=== PATIENT | female | born 1945 | race African-American/Black ===

== ENCOUNTER 2016-11-12 14:15 | Inpatient (IN) | payer BC ==
--- NOTE | ~2016-11-12 | EGD ---
EGD REPORT [facility] [address] [place] [address] NAME: ANGELICA BERGERON : [birth year] STATUS : ADM IN PAT#: [id number] AGE: 71 ADM/REG DATE : 11/12/16 MR#: [id number] REPORT SERV DATE: 11/14/16 DICTATED BY: RUDY MARSHALL DATE: 11/14/16 REPORT STATUS : Draft TRANSCRIBED BY: [facility] DATE: 11/14/16 Endoscopy Center Patient Name: Angelica Bergeron Date of : 1945 Attending MD: RUDY MARSHALL MD Procedure Date No Time: 11/14/2016 Procedure: Colonoscopy Indications: Anemia Referring MD: KHADIJAH NOVOA Medicines: Monitored Anesthesia Care Complications: No immediate complications. Estimated blood loss: Minimal. Procedure: Pre-Anesthesia Assessment: - ASA Grade Assessment: IV - A patient with severe systemic disease that is a constant threat to life. After I obtained informed consent, the scope was passed under direct vision. Throughout the procedure, the patient's blood pressure, pulse, and oxygen saturations were monitored continuously. The CF [id number] was introduced through the anus and advanced to the cecum, identified by appendiceal orifice and ileocecal valve. The colonoscopy was performed without difficulty. The patient tolerated the procedure well. The quality of the bowel preparation was fair. Findings: The perianal and digital rectal examinations were normal. Pertinent negatives include no palpable rectal lesions. A semi-sessile polyp was found in the ascending colon. The polyp was 8 mm in size. The polyp was removed with a cold snare. Resection and retrieval were complete. Estimated blood loss was minimal. Two flat polyps were found in the sigmoid colon. The polyps were 3 to 5 mm in size. These polyps were removed with a cold snare. Resection and retrieval were complete. Estimated blood loss was minimal. Estimated blood loss was minimal. A few small-mouthed diverticula were found in the sigmoid colon, in the descending colon and in the ascending colon. The exam was otherwise without abnormality on direct and retroflexion views. Impression: - One 8 mm polyp in the ascending colon. Resected and retrieved. - Two 3 to 5 mm polyps in the sigmoid colon. Resected and retrieved. - Diverticulosis in the sigmoid colon, in the descending EGD REPORT [place] [address] [place]. [address] NAME: ANGELICA BERGERON : [birth year] STATUS : ADM IN [facility]#: [id number] AGE: 71 ADM/REG DATE : 11/12/16 MR#: [id number] REPORT SERV DATE: 11/14/16 DICTATED BY: RUDY MARSHALL DATE: 11/14/16 REPORT STATUS : Draft TRANSCRIBED BY: [employer] DATE: 11/14/16 colon and in the ascending colon. - The examination was otherwise normal on direct and retroflexion views. - No suggestion of old or recent bleeding with green/brown stool on exam Recommendation: - [facility]. - Await pathology results. Procedure Code(s): --- Professional --- 09632, Colonoscopy, flexible, proximal to splenic flexure; with removal of tumor(s), polyp(s), or other lesion(s) by snare technique Diagnosis Code(s): --- Professional --- D12.5, Benign neoplasm of sigmoid colon D12.2, Benign neoplasm of ascending colon K57.30, Diverticulosis of large intestine without perforation or abscess without bleeding D64.9, Anemia, unspecified CPT copyright 2013 [place] [employer]. All rights reserved. The codes documented in this report are preliminary and upon commuter pilot review may be revised to meet current compliance requirements. Rudy Marshall MD RUDY MARSHALL MD 11/14/2016 8:15 AM This report has been signed electronically. Number of Addenda: 0 Note Initiated On: 11/14/2016 7:32 AM Scope Withdrawal Time 0 hours 15 minutes 1 second [address] [place] [address]
--- NOTE | ~2016-11-12 | DS ---
Discharge Summary [facility] [address] [place]. [address] NAME: ANGELICA CHAVEZ : [birth year] STATUS : DIS IN PAT#: [id number] AGE: 71 ADM/REG DATE : 11/12/16 MR#: [id number] REPORT SERV DATE: 11/20/16 DICTATED BY: STELLA KANG. DATE: 11/19/16 REPORT STATUS : Draft TRANSCRIBED BY: HARI DATE: 11/19/16 ADMISSION DATE: 11/12/2016 DISCHARGE DATE: 11/19/2016 CONSULTING PHYSICIAN: Dr. Bravo. FINAL DIAGNOSES: 1. Status post confusion, history of dementia, seizure, and cerebrovascular accident. 2. Acute blood loss anemia, status post two units of packed RBC. 3. Hypothyroidism. HOSPITAL COURSE: Please refer to the H and P done by Dr. Wallace on 11/12/2016 and her interim discharge summary on 11/18/2016. Since I saw this patient, the patient is already doing well and has been cleared from GI point of view to be discharged on aspirin. The patient's vital signs remained stable, mental status back to normal, and [facility] has approved the patient to their facility. So, we will be discharging the patient with the above diagnoses. The patient will be on the same medications as written down in the discharge summary of Dr. Wallace yesterday. She will follow up with the [facility] doctor, then follow up with Drake Medrano upon discharge from [facility]. This has been explained to her in front of family member, and they agreed and understood the plan. AUGUSTINE/HARI Stella Kang M.D. / [id number] CC: Beto Bull M.D.
--- NOTE | ~2016-11-12 | HP ---
History And Physical [place] [id number] [place]. [address] NAME: ANGELICA CHAVEZ : [birth year] STATUS : ADM IN [facility]#: [id number] AGE: 71 ADM/REG DATE : 11/12/16 MR#: [id number] REPORT SERV DATE: 11/12/16 DICTATED BY: DANIKA ALONSO DATE: 11/12/16 REPORT STATUS : Draft TRANSCRIBED BY: MODAbbe DATE: 11/12/16 DATE OF ADMISSION: 11/12/2016 HISTORY OF PRESENT ILLNESS: The patient is a very pleasant 71-year-old female, who was brought to [facility] accompanied with her family. According to the family and daughter who are at the bedside, they reported that the patient had laser surgery for nodes on her gums yesterday and after that laser surgery, she was given pain medicine and she was not herself. She was sleepy and lethargic as well as she was a little bit short of breath, and she was confused and disoriented as well, and dyspnea on exertion, although no dyspnea at rest. She has history of mild dementia secondary to stroke that she had before, but daughter reported that she was not doing well, so they brought her here to the emergency room. Now her daughter who was at the bedside told me that the patient is improved and her confusion has improved. She does not know the year but she knows that she is in the [facility] and she can follow commands and answer simple questions, but she does not know the current year and does not know the date. The patient denies any chest pain, no shortness of breath at rest. No fever. She is having gas and daughter reported that she may have a loose stool, although she reported that she was not given antibiotics yesterday after laser surgery. No shortness of breath. No chest pain. No abdominal pain. In the emergency room, Dr. Mena, emergency room physician, checked her for blood in the stool and she was heme positive. PAST MEDICAL HISTORY: Obtained from medical records as well as from the patient's daughter, she has history of seizures but they are well controlled, history of major stroke several years ago. Also she had history of hypertension, history of thyroid ablation. She has history of knee surgery in the past. She does not have any allergies. She also has history of dementia. HOME MEDICATIONS: Include aspirin 81 mg a day, Lipitor 20 mg daily, Depakote 500 three times a day, Neurontin 300 mg three times daily, Aricept 10 mg at bedtime, hydrocodone with acetaminophen 5/325 one tablet p.o. q.4 hours p.r.n. for pain, Keppra 500 p.o. daily, levothyroxine 112 mcg a day, multivitamins daily, Dilantin 300 at bedtime, potassium chloride 10 mEq three times a day, and propranolol 40 mg p.o. with lunch. SOCIAL HISTORY: She still smokes half pack a day. No alcohol. No recreational drugs. She lives by herself but family checks on her very often. FAMILY HISTORY: Mother of a stroke. Father had a heart attack. ALLERGIES: NO KNOWN DRUG ALLERGIES. REVIEW OF SYSTEMS: All systems are reviewed and are negative except what is stated in the history of present illness. PHYSICAL EXAMINATION: GENERAL: Thin female, not in acute distress, resting quietly. History And Physical [address] [address] NAME: ANGELICA CHAVEZ : [birth year] STATUS : ADM IN [facility]#: [id number] AGE: 71 ADM/REG DATE : 11/12/16 MR#: [id number] REPORT SERV DATE: 11/12/16 DICTATED BY: DANIKA ALONSO DATE: 11/12/16 REPORT STATUS : Draft TRANSCRIBED BY: HARI DATE: 11/12/16 VITAL SIGNS: Blood pressure 124/52, temperature 98.3, heart rate 89, respiratory rate 22, oxygen saturation 95 on room air. HEENT: Head atraumatic, normocephalic. Conjunctivae clear. Pupils are equal and reactive to light and accommodation. Extraocular muscles are intact. NECK: Supple. Trachea is midline. No supraclavicular or cervical lymphadenopathy. LUNGS: Clear to auscultation bilaterally. Normal respiratory effort. CARDIOVASCULAR: Regular rate and rhythm. Point of maximal impulse not displaced. ABDOMEN: Soft, nontender, nondistended. Positive normoactive bowel sounds. No organomegaly. EXTREMITIES: No clubbing, cyanosis, or edema. SKIN: Normal color, slightly decreased turgor. PSYCHIATRIC: Normal mood, flat affect. NEUROLOGIC: Awake, alert, oriented only to place, disoriented to time, oriented to person and can recognize her children. Does not know the date and the year. Muscle strength is 5/5 bilaterally on upper and lower extremities. No evidence of lethargy. LABORATORY RESULTS: White count 10.3, hemoglobin 8.9, hematocrit 26.6, platelet count 234. Her hemoglobin on 06/02/2016 was 13.2. PT was 15.9, INR 1.3, PTT 28.7. Sodium 144, potassium 4.3, chloride 106, carbon dioxide 26, BUN 25, creatinine 1.39, blood sugar 181. Her last creatinine on 09/19/2016 was 1.16. Urinalysis did not show any evidence of urinary infection. Chest x-ray, normal chest x-ray. No acute cardiopulmonary abnormality. CT of the brain without contrast showed large old left MCA infarction and mild generalized atrophy. Her troponin was less than 0.02. ASSESSMENT AND PLAN: This is a very pleasant 71-year-old female with a history of seizures, history of mild dementia, history of big stroke in the past as well as with a history of hypothyroidism after she had a thyroid ablation for Graves disease. She presented after she had procedure on her teeth with, 1. Confusion. 2. Yesterday had a gum surgery. 3. Acute kidney injury on chronic kidney disease. 4. Questionable diarrhea. 5. Anemia of acute blood loss with heme-positive stool. Question if this anemia also related to her gum surgery. 6. History of cerebrovascular accident in the past. 7. History of seizures, on multiple antiseizure medications. 8. History of thyroid ablation and currently being hypothyroid on thyroid replacement. We will admit the patient to telemetry bed. Her confusion is already better. We will check serum B12 and folate level as well as being currently hypothyroid, we will check her TSH level. Questionable diarrhea. If she will have an overt diarrhea, we will check her stool studies for possible infection, but they denied any recent use of antibiotics. History And Physical [address] [place]. [address] NAME: ANGELICA CHAVEZ : [birth year] STATUS : ADM IN [facility]#: [id number] AGE: 71 ADM/REG DATE : 11/12/16 MR#: [id number] REPORT SERV DATE: 11/12/16 DICTATED BY: DANIKA ALONSO DATE: 11/12/16 REPORT STATUS : Draft TRANSCRIBED BY: MODL DATE: 11/12/16 Heme-positive stool with anemia of probably acute blood loss. We will check her iron studies. We will monitor her hemoglobin and hematocrit as well as I opened all the records and reviewed them. On October 2009, she had a colonoscopy done by Dr. Efrem Cartwright and she had three polyps removed as well as she had a diverticulosis. We do not know if she is losing her blood from the upper or lower GI source. We will put her on Protonix drip as well as check her hemoglobin and hematocrit periodically and monitor her. Acute kidney injury on chronic kidney disease, likely secondary to dehydration. We will start her on IV fluid. Also on multiple seizure medications. No active seizures recently. We will check serum Dilantin and Depakote level. I will consult thermoplastic technician, the same group as she saw before Efrem Cartwright. Follow up on this patient starting tomorrow morning. Family was updated. MG/MODAbbe Danika Alonso M.D. / [id number] CC: Drake Medrano M.D.
--- NOTE | ~2016-11-12 | EGD ---
EGD REPORT [facility] [address] [address] NAME: ANGELICA BERGERON : [birth year] STATUS : ADM IN PAT#: [id number] AGE: 71 ADM/REG DATE : 11/12/16 MR#: [id number] REPORT SERV DATE: 11/14/16 DICTATED BY: RUDY MARSHALL DATE: 11/14/16 REPORT STATUS : Draft TRANSCRIBED BY: [facility] DATE: 11/14/16 Endoscopy Center Patient Name: Angelica Bergeron Date of : 1945 Attending MD: RUDY MARSHALL MD Procedure Date No Time: 11/14/2016 Procedure: Upper GI endoscopy Indications: Anemia Referring MD: KHADIJAH NOVOA Medicines: Monitored Anesthesia Care Complications: No immediate complications. Estimated blood loss: None. Procedure: Pre-Anesthesia Assessment: - ASA Grade Assessment: IV - A patient with severe systemic disease that is a constant threat to life. After obtaining informed consent, the endoscope was passed under direct vision. Throughout the procedure, the patient's blood pressure, pulse, and oxygen saturations were monitored continuously. The GIF [id number] was introduced through the mouth, and advanced to the second part of duodenum. The upper GI endoscopy was accomplished without difficulty. The patient tolerated the procedure well. Findings: The examined esophagus was normal. The entire examined stomach was normal. The examined duodenum was normal. The cardia and gastric fundus were normal on retroflexion. Impression: - Normal examination with no suggestion of potential blood loss seen Recommendation: - Perform a colonoscopy today. Procedure Code(s): --- Professional --- 55037, Esophagogastroduodenoscopy, flexible, transoral; diagnostic, including collection of specimen(s) by brushing or washing, when performed (separate procedure) Diagnosis Code(s): --- Professional --- D64.9, Anemia, unspecified CPT copyright 2013 [place] [employer]. All rights reserved. EGD REPORT [facility] [address] [address] NAME: ANGELICA BERGERON : [birth year] STATUS : ADM IN [facility]#: [id number] AGE: 71 ADM/REG DATE : 11/12/16 MR#: [id number] REPORT SERV DATE: 11/14/16 DICTATED BY: RUDY MARSHALL DATE: 11/14/16 REPORT STATUS : Draft TRANSCRIBED BY: [employer] DATE: 11/14/16 The codes documented in this report are preliminary and upon automatic lehr operator review may be revised to meet current compliance requirements. Rudy Marshall MD RUDY MARSHALL MD 11/14/2016 7:49 AM This report has been signed electronically. Number of Addenda: 0 Note Initiated On: 11/14/2016 7:33 AM Scope Withdrawal Time 0 hours 0 minutes 0 seconds [address] [place] [address]
--- NOTE | ~2016-11-12 | IDS ---
Interim Discharge Summary [facility] [address] [place]. [address] NAME: ANGELICA CHAVEZ : [birth year] STATUS : ADM IN [facility]#: [id number] AGE: 71 ADM/REG DATE : 11/12/16 MR#: [id number] REPORT SERV DATE: 11/18/16 DICTATED BY: DANIKA ALONSO DATE: 11/18/16 REPORT STATUS : Draft TRANSCRIBED BY: MODL DATE: 11/18/16 ADMISSION DATE: 11/12/2016 DISCHARGE DATE: INTERIM DISCHARGE SUMMARY COMPRESSOR STATION ENGINEER CHIEF: John Bravo MD and Rudy Dockery MD The patient is still hospitalized. She is waiting for [employer] approval today 11/18/2016. She is still inpatient. CURRENT MEDICAL PROBLEMS: 1. Confusion, present on admission, currently improved, status post gum surgery a day prior admission. 2. Acute kidney injury, present on admission, currently resolved. 3. No evidence of diarrhea while hospitalized. 4. Anemia of acute blood loss with heme-positive stool. Negative upper and lower endoscopy, status post blood transfusion. Hemoglobin and hematocrit stable for the last 3 days. Check hemoglobin tomorrow in the a.m. 5. History of cerebrovascular accident in the past. The patient currently at the baseline. Confusion resolved. 6. History of seizures in the past. No evidence of seizures while inpatient with appropriate Depakote and Dilantin levels. 7. Status post modify barium swallowing study. No evidence of aspiration, but showed prolonged and decrease chewing of cracker with moderate pharyngeal residual. Recommendation was with soft mechanical diet, meat chopped with gravy, and needs also training of swallowing while at [facility]. 8. Dementia. 9. Moderate protein calorie malnourishment. CONSULTANTS: Capacitor Assembler, Dr. Dockery and his nurse practitioner, Isacc. PROCEDURES DONE: 1. On 11/14/2016, upper endoscopy: Normal upper endoscopy. 2. On 11/14/2016, colonoscopy: Status post one 8 mm polyp of the ascending colon, resected and retrieved, 3 to 5 mm 2 polyps resected and retrieved from the sigmoid colon. Diverticulosis in the sigmoid colon in the ascending colon. The examination otherwise normal. No suggestion of old or recent bleeding with green brown stool on examination. HISTORY OF PRESENT ILLNESS: Briefly, this is a 71-year-old female who was admitted by tn on 11/12/2016, because the patient had gum surgery and she had some bleeding from his gums. She had polyps removed from her gums and then she became sleepy and lethargic after procedure next day, so for this concern, the patient was brought to the hospital. For the details, see history of present illness dictated by me on 11/12/2016. Interim Discharge Summary [place] [address] [place]. [address] NAME: ANGELICA CHAVEZ : [birth year] STATUS : ADM IN PAT#: [id number] AGE: 71 ADM/REG DATE : 11/12/16 MR#: [id number] REPORT SERV DATE: 11/18/16 DICTATED BY: DANIKA ALONSO DATE: 11/18/16 REPORT STATUS : Draft TRANSCRIBED BY: HARI DATE: 11/18/16 HOSPITAL COURSE: Briefly, the patient got better after she was hospitalized. She had mild acute kidney injury on admission, which has resolved with IV fluid hydration. Her creatinine normalized. It was on 11/14/2016 was 0.95 and on 11/15/2016 was 0.72. On admission according to the ER physician, she had a heme-positive stool. She was anemic. Her hemoglobin on admission was 8.9. It came down next day to 7.1 when she received 1 unit of blood transfusion, but it was likely delusional because she was on IV fluids. So after blood transfusion, it came up to 8.9 and then she had upper and lower endoscopy. She was still on IV fluids and then it decreased to 7.2. We gave her another unit of blood and her hemoglobin came up on 11/16/2016 was 8.8. Yesterday on 11/17/2016 was 9.1, and today 9.2. I want to mention that her IV fluids was discontinued on 11/15/2016 and since that time, she does not have any drop in her hemoglobin. This was discussed with Dr. Dockery and his nurse practitioner, and they think that this was most likely dilutional effect. The patient had absolutely normal upper and lower endoscopy and there was no any evidence of bleeding during endoscopy. This was discussed by me with Dr. Dockery's nurse practitioner, Isacc, so they recommend the patient to be discharged to [facility] and also they are recommended to restart her baby aspirin and they also recommended to follow up with Dr. Bravo, probate clerk, in two to four weeks and I discussed regarding these with the patient's daughter and son. There was a concern for dysphagia. Modified barium swallowing study did not show any evidence of aspiration and the question is probably because of the recent laser surgery on her gum, the patient has a discomfort with swallowing. The recommendation was the patient to be on soft mechanical diet, meat chopped with gravy, and thin liquids and also only use normal straws and she can have swallowing training at [facility]. This was also discussed with the patient's daughter. The patient recommended to be discharged on Lipitor 20 mg a day, Depakote 500 p.o. t.i.d., Aricept 10 mg a day, Neurontin 300 mg t.i.d., Keppra 500 mg daily, levothyroxine 112 mcg daily, Dilantin 300 at bedtime, propranolol 40 mg a day, aspirin 81 mg a day, hydrocodone with acetaminophen 1 tablet p.o. q.4h. p.r.n. for pain, multivitamins daily, potassium chloride 10 mEq daily. Check serum potassium in [facility] on 11/20/2016. My partner to check the patient's hemoglobin and hematocrit in the morning. If she is stable, she can go to [facility] tomorrow. I told the family that she needs to follow up with Dr. Bravo in two to four weeks. MG/MODL Danika Alonso M.D. / [id number] CC: Danika Alonso M.D. Interim Discharge Summary [address] [facility] [address] NAME: ANGELICA CHAVEZ : [birth year] STATUS : ADM IN [facility]#: [id number] AGE: 71 ADM/REG DATE : 11/12/16 MR#: [id number] REPORT SERV DATE: 11/18/16 DICTATED BY: DANIKA ALONSO DATE: 11/18/16 REPORT STATUS : Draft TRANSCRIBED BY: MODL DATE: 11/18/16 Drake Medrano M.D. John Bravo M.D. Rudy Dockery MD
--- NOTE | ~2016-11-12 | CN ---
Consultation Report [facility] [address] [place]. [address] NAME: ANGELICA BERGERON : 49 STATUS : ADM IN [facility]#: [id number] AGE: 71 ADM/REG DATE : 11/12/16 MR#: [id number] REPORT SERV DATE: 11/13/16 DICTATED BY: YURIDIA MALDONADO DATE: 11/13/16 REPORT STATUS : Draft TRANSCRIBED BY: MODAbbe DATE: 11/13/16 GI CONSULTATION DATE OF CONSULTATION: 11/13/2016 REASON FOR CONSULTATION: Evaluation and management of anemia, Hemoccult-positive stools, reports of hematochezia. HISTORY OF PRESENT ILLNESS: Ms. Angelica Bergeron is a 71-year-old female patient, who has been seen by Dr. Efrem Cartwright in the past for colonoscopy, who presented to [facility] on 11/12 with a chief complaint of altered mental status and lethargy. It should be noted that a majority of the history of present illness is gathered from the daughter at the bedside. It appears that she had some type of laser gum surgery on the day of admission. The daughter states that she had quite a bit of blood loss following the procedure. She was given narcotic pain medications, which she did take. Increased lethargy after that as well as confusion and disorientation from baseline. She does have a history of mild dementia. She states that the patient has been having ongoing progressive fatigue. She states to me also that over the last six months, she has lost 50 pounds of weight. She felt initially that it was secondary to the patient's edentulous state as well as the abnormalities in the oral cavity. The patient denies any dysphagia or odynophagia. No reflux. No abdominal pain. She herself denies seeing any blood in her stools. Her last colonoscopy was done in [address] Cartwright secondary to rectal bleeding. She had findings of internal hemorrhoids, sigmoid colon diverticulosis, she had five polyps that were removed and found to be tubular adenomatous type. She was supposed to repeat colonoscopy in three years and has yet to do so. Iron studies have been checked and were found to be normal. A hemoglobin on admission was 8.9, it has subsequently dropped to 7.1, it should be noted that she had a hemoglobin in 05/2016 of 13.2. I have had a long discussion with the patient as well as the patient's daughter present at the bedside, we will plan on pursuing EGD and colonoscopy tomorrow. Risks, benefits, alternatives, and complications were detailed for her to include, but not limited to risk of bleeding, perforation, infection, reaction to medications, as well as cardiac and pulmonary side effects. She is agreeable to proceed. On assessment of the patient's oral cavity, the roof of her mouth has a very large, which encompasses the majority of the roof of her mouth, a necrotic-appearing area, very dark with some intermixed light coloration areas to it with a slightly foul odor. PAST MEDICAL HISTORY: Positive for colon polyps, diverticulosis, internal hemorrhoids, seizures, stroke, hypertension, hypothyroidism with thyroid ablation, knee surgery, mild dementia. SOCIAL HISTORY: Lives independently, but family is close by. She still has a history of tobacco abuse, smokes half a pack a day. Denies alcohol. No illicit drugs. FAMILY HISTORY: Noncontributory from a GI standpoint. Consultation Report [address] [place]. [address] NAME: ANEGLICA BERGERON : 49 STATUS : ADM IN [facility]#: [id number] AGE: 71 ADM/REG DATE : 11/12/16 MR#: [id number] REPORT SERV DATE: 11/13/16 DICTATED BY: YURIDIA MALDONADO DATE: 11/13/16 REPORT STATUS : Draft TRANSCRIBED BY: HARI DATE: 11/13/16 ALLERGIES: NO KNOWN DRUG ALLERGIES. HOME MEDICATIONS: Aspirin, Lipitor, Depakote, Aricept, Neurontin, [place], Keppra, Synthroid, Centrum multivitamin, Dilantin, potassium, and Inderal. REVIEW OF SYSTEMS: A 10-point review of systems was obtained with pertinent positives addressed in the history of present illness. PERTINENT LABORATORY DATA: Sodium 147, potassium 4.5, BUN 34, creatinine 1.31. White count 11.2, hemoglobin 7.1, hematocrit 21, platelet count 176. INR 1.3. Iron 108, iron binding capacity 257, ferritin 84. Folate is 3.0. PHYSICAL EXAMINATION: VITAL SIGNS: Temperature 98.2, pulse 77, respirations 17, and blood pressure 117/56. NEURO: Reveals an alert female, resting in bed, who appears thin. Mild temporal wasting. GENERAL: She is cooperative. She is in no obvious distress. She is awake and alert. HEAD, EARS, EYES, NOSE, AND THROAT: Anicteric. Pupils equal, round, reactive to light and accommodation. Normocephalic and atraumatic. Roof of the mouth with abnormal area, question secondary to recent oral surgery. NECK: No JVD. No palpable nodes. LUNGS: Decreased in the bases. Clear in the upper lobes. Normal respiratory effort exhibited. CARDIOVASCULAR SYSTEM: Regular rate and rhythm. ABDOMEN: Soft, nontender, flat. Active bowel sounds in all four quadrants. No organomegaly appreciated. EXTREMITIES: 1+ bilateral lower extremity edema. SKIN: Warm, dry, and intact. ASSESSMENT: 1. Acute blood loss anemia. Hemoglobin in May 21.2, presently it is 7.1. 2. Hemoccult-positive stools without overt signs of bleeding. 3. Weight loss of 50 pounds over the last six months. 4. Acute kidney injury with chronic kidney disease. 5. Recent oral/gum surgery with postoperative bleeding. PLAN: 1. Clear liquid diet and n.p.o. after midnight. 2. EGD and colonoscopy on 11/14. 3. Transfuse one unit of packed red blood cells. 4. PPI. 5. Other recommendations to follow endoscopy. Consultation Report [address] [place]. [address] NAME: ANGELICA BERGERON : 49 STATUS : ADM IN [facility]#: [id number] AGE: 71 ADM/REG DATE : 11/12/16 MR#: [id number] REPORT SERV DATE: 11/13/16 DICTATED BY: YURIDIA MALDONADO DATE: 11/13/16 REPORT STATUS : Draft TRANSCRIBED BY: HARI DATE: 11/13/16 KARLA/HARI ROSEMARY German / [id number] CC: Beto Souza M.D.
[~2016-11-12 14:15] MED LIST: AMILOR/HCTZ1 TAB PO; ASAB PO; D100 PO; DEPAKOT500 PO; EXELON4.6T PO; KEPPRA500 PO; KLOR-CON 1010 MEQ PO; LEVOTHYROXIN137 MCG PO; TRILEP150 PO
[2016-11-12 14:28] LABS: BASOPHILS 0.3 %; BASOPHILS ABSOLUTE 0.03 10/3/uL (0.0-0.16); EOSINOPHILS 0.1 %; EOSINOPHILS ABSOLUTE 0.01 10/3/uL (0.0-0.53); ER CBC TAT 0 Hrs 10 Mins; IMMATURE GRANULOCYTES 0.9 %; IMMATURE GRANULOCYTES ABSOLUTE 0.09 10/3/uL (0.0-0.11); LYMPHOCYTES 28.7 %; LYMPHOCYTES ABSOLUTE 2.94 10/3/uL (0.67-4.30); MEAN CORPUS HGB CONC 33.5 g/dL (32.0-36.0); MEAN CORPUSCULAR HEMOGLOB 27.6 pg (26.0-34.0); MEAN PLATELET VOLUME 10.6 fL (9.2-13.0); MONOCYTES 10.2 %; MONOCYTES ABSOLUTE 1.05 10/3/uL (0.21-1.20); NEUTROPHILS 59.8 %; NEUTROPHILS ABSOLUTE 6.14 10/3/uL (2.02-8.40); PLATELET COUNT 234 10/3/uL (150-400); RBC DISTRIBUTION WIDTH 21.1 % (12.0-16.0); WHITE BLOOD CELLS 10.3 10/3/uL (4.5-10.5)
[2016-11-12 14:29] LABS: HEMATOCRIT 26.6 % (36.0-48.0); HEMOGLOBIN 8.9 g/dL (12.0-16.0); MANUAL DIFF NO %; MEAN CORPUSCULAR VOLUME 82.6 fL (80-100); RED CELL COUNT 3.22 10/6/uL (4.0-5.6)
[2016-11-12 14:36] LABS: ASCORBIC ACID (UR NOT ORDER) NEG (NEG); BILIRUBIN, URINE NEGATIVE (NEG); ER URINALYSIS TAT 0 Hrs 00 Mins; KETONE, URINE TRACE MG/DL (NEG); LEUKOCYTE ESTERASE(NOT OR NEG (NEG); NITRITE (URINE) NEG (NEG); WBC (NOT ORDERED) (RFLEX) 1 (0-5)
[2016-11-12 14:41] LABS: A/G RATIO 0.7 (0.7-1.9); ALBUMIN 2.4 G/DL (3.5-5.0); ALKALINE PHOSPHATASE 60 U/L (45-117); BUN (BLOOD UREA NITROGEN) 25 MG/DL (6-23); CALCIUM, SERUM 7.6 MG/DL (8.5-10.4); CHLORIDE, SERUM 106 MMOL/L (96-112); CO2 (CARBON DIOXIDE) 26 MMOL/L (24-34); CREATININE 1.39 MG/DL (0.55-1.02); GFR AFRICAN AMERICAN 45 ML/MIN (>=60); GFR NON AFRICAN AMERICAN 39 ML/MIN (>=60); GLOBULIN 3.6 G/DL (2.5-4.1); GLUCOSE, SERUM 181 MG/DL (60-99); POTASSIUM, SERUM 4.3 MMOL/L (3.5-5.3); SGOT(AST) 10 U/L (5-40); SGPT(ALT) 10 U/L (5-65); SODIUM, SERUM 144 MMOL/L (135-148); TOTAL BILIRUBIN 0.3 MG/DL (0-1.2); TROPONIN I <0.02 NG/ML (<0.05)
[2016-11-12 16:04] LABS: INTERNATIONAL NORMAL RATI 1.3 UNITS (-); PARTIAL THROMBO TIME 28.7 SEC (22.5-37.2)
[2016-11-12 16:05] LABS: PROTIME (NOT ORD) 15.9 SEC (12.0-14.5)
[2016-11-12] MEDS ORDERED: ASAB PO (16:16)
[2016-11-12] MEDS ORDERED: ARICEPT10 PO (16:17)
[2016-11-12] MEDS ORDERED: DEPAKOT500 PO (16:17)
[2016-11-12] MEDS ORDERED: SYN112 PO (16:17)
[2016-11-12] MEDS ORDERED: KEPPRA500 PO (16:18)
[2016-11-12] MEDS ORDERED: NORCO1 TA1 PO (16:19)
[2016-11-12] MEDS ORDERED: NEUR300 PO (16:19)
[2016-11-12] MEDS ORDERED: D100 PO (16:20)
[2016-11-12] MEDS ORDERED: LIPITOR20 PO (16:20)
[2016-11-12] MEDS ORDERED: KAON-CL-1010 MEQ PO (16:21)
[2016-11-12] MEDS ORDERED: CENTRUM PO (16:22)
[2016-11-12] MEDS ORDERED: I40 PO (16:22)
[2016-11-12 22:30] LABS: GLYCOHEMOGLOBIN (HbA1c) 4.7 % (4.7-6.1)
[2016-11-12 22:31] LABS: DEPAKENE (VALPROIC ACID) 36.6 MCG/ML (50.0-100.0); DILANTIN (PHENYTOIN) 18.6 MCG/ML (10.0-20.0)
[2016-11-12 22:51] LABS: FERRITIN 84 NG/ML (8-252); IRON BINDING CAPACITY 257 MCG/DL (225-410); IRON, SERUM 108 MCG/DL (35-150)
[2016-11-12 22:53] LABS: ULTRASENSITIVE TSH 0.946 MCIU/ML (0.358-3.740)
[2016-11-12 23:09] LABS: B NATRIURETIC PEPTIDE (BNP) 52.2 PG/ML (< 100.0)
[2016-11-12 23:12] LABS: AMPHETAMINES (NOT ORD) NEG (NEG); BARBITURATES (NOT ORDERED NEG (NEG); BENZODIAZEPINES (NOT ORD) NEG (NEG); CANNABINOIDS (THC) NEG (NEG); COCAINE (NOT ORDERED) NEG (NEG); OPIATES POS (NEG); PHENCYCLIDINE(PCP) NEG (NEG); TRICYCLICS NEG (NEG)
[2016-11-13 00:01] LABS: HEMATOCRIT 24.2 % (36.0-48.0); HEMOGLOBIN 8.2 g/dL (12.0-16.0)
[2016-11-13 08:07] LABS: BASOPHILS 0.4 %; BASOPHILS ABSOLUTE 0.05 10/3/uL (0.0-0.16); EOSINOPHILS 0.4 %; EOSINOPHILS ABSOLUTE 0.05 10/3/uL (0.0-0.53); HEMOGLOBIN 7.1 g/dL (12.0-16.0); IMMATURE GRANULOCYTES 0.5 %; IMMATURE GRANULOCYTES ABSOLUTE 0.06 10/3/uL (0.0-0.11); LYMPHOCYTES 43.7 %; LYMPHOCYTES ABSOLUTE 4.87 10/3/uL (0.67-4.30); MEAN CORPUS HGB CONC 33.8 g/dL (32.0-36.0); MEAN CORPUSCULAR HEMOGLOB 28.2 pg (26.0-34.0); MEAN CORPUSCULAR VOLUME 83.3 fL (80-100); MEAN PLATELET VOLUME 10.6 fL (9.2-13.0); MONOCYTES 10.1 %; MONOCYTES ABSOLUTE 1.13 10/3/uL (0.21-1.20); NEUTROPHILS 44.9 %; NEUTROPHILS ABSOLUTE 4.99 10/3/uL (2.02-8.40); PLATELET COUNT 176 10/3/uL (150-400); RBC DISTRIBUTION WIDTH 21.1 % (12.0-16.0); WHITE BLOOD CELLS 11.2 10/3/uL (4.5-10.5)
[2016-11-13 08:10] LABS: MANUAL DIFF NO %; RED CELL COUNT 2.52 10/6/uL (4.0-5.6)
[2016-11-13 08:24] LABS: CALCIUM, SERUM 7.4 MG/DL (8.5-10.4); CHLORIDE, SERUM 112 MMOL/L (96-112); CO2 (CARBON DIOXIDE) 28 MMOL/L (24-34); CREATININE 1.31 MG/DL (0.55-1.02); GFR AFRICAN AMERICAN 48 ML/MIN (>=60); GFR NON AFRICAN AMERICAN 41 ML/MIN (>=60); POTASSIUM, SERUM 4.5 MMOL/L (3.5-5.3); SODIUM, SERUM 147 MMOL/L (135-148); TROPONIN I <0.02 NG/ML (<0.05)
[2016-11-13 08:26] LABS: BUN (BLOOD UREA NITROGEN) 34 MG/DL (6-23); GLUCOSE, SERUM 84 MG/DL (60-99)
[2016-11-13 17:37] LABS: HEMATOCRIT 25.7 % (36.0-48.0); HEMOGLOBIN 8.9 g/dL (12.0-16.0)
[2016-11-14 10:27] LABS: INTERNATIONAL NORMAL RATI 1.2 UNITS (-)
[2016-11-14 10:31] LABS: BASOPHILS 0.3 %; BASOPHILS ABSOLUTE 0.04 10/3/uL (0.0-0.16); CALCIUM, SERUM 7.2 MG/DL (8.5-10.4); CHLORIDE, SERUM 116 MMOL/L (96-112); CO2 (CARBON DIOXIDE) 30 MMOL/L (24-34); CREATININE 0.95 MG/DL (0.55-1.02); EOSINOPHILS 1.2 %; EOSINOPHILS ABSOLUTE 0.14 10/3/uL (0.0-0.53); GFR AFRICAN AMERICAN 71 ML/MIN (>=60); GFR NON AFRICAN AMERICAN 61 ML/MIN (>=60); GLUCOSE, SERUM 81 MG/DL (60-99); HEMOGLOBIN 7.5 g/dL (12.0-16.0); IMMATURE GRANULOCYTES 1.3 %; IMMATURE GRANULOCYTES ABSOLUTE 0.15 10/3/uL (0.0-0.11); LYMPHOCYTES 32.6 %; LYMPHOCYTES ABSOLUTE 3.74 10/3/uL (0.67-4.30); MEAN CORPUS HGB CONC 33.5 g/dL (32.0-36.0); MEAN CORPUSCULAR HEMOGLOB 28.5 pg (26.0-34.0); MEAN CORPUSCULAR VOLUME 85.2 fL (80-100); MEAN PLATELET VOLUME 10.8 fL (9.2-13.0); MONOCYTES 10.1 %; MONOCYTES ABSOLUTE 1.16 10/3/uL (0.21-1.20); NEUTROPHILS 54.5 %; NEUTROPHILS ABSOLUTE 6.23 10/3/uL (2.02-8.40); PLATELET COUNT 162 10/3/uL (150-400); POTASSIUM, SERUM 3.9 MMOL/L (3.5-5.3); RED CELL COUNT 2.63 10/6/uL (4.0-5.6); SODIUM, SERUM 151 MMOL/L (135-148); WHITE BLOOD CELLS 11.5 10/3/uL (4.5-10.5)
[2016-11-14 10:32] LABS: BUN (BLOOD UREA NITROGEN) 21 MG/DL (6-23); HEMATOCRIT 22.4 % (36.0-48.0)
[2016-11-14 10:39] LABS: PREALBUMIN 10.7 MG/DL (17.0-43.0)
[2016-11-15 06:34] LABS: HEMOGLOBIN 7.2 g/dL (12.0-16.0)
[2016-11-15 06:41] LABS: CALCIUM, SERUM 7.3 MG/DL (8.5-10.4); CHLORIDE, SERUM 115 MMOL/L (96-112); CREATININE 0.72 MG/DL (0.55-1.02); GFR AFRICAN AMERICAN 99 ML/MIN (>=60); GFR NON AFRICAN AMERICAN 85 ML/MIN (>=60); GLUCOSE, SERUM 81 MG/DL (60-99); POTASSIUM, SERUM 4.2 MMOL/L (3.5-5.3); SODIUM, SERUM 147 MMOL/L (135-148)
[2016-11-15 06:46] LABS: BUN (BLOOD UREA NITROGEN) 12 MG/DL (6-23); CO2 (CARBON DIOXIDE) 24 MMOL/L (24-34)
[2016-11-16 07:22] LABS: BASOPHILS 0.2 %; BASOPHILS ABSOLUTE 0.02 10/3/uL (0.0-0.16); EOSINOPHILS 2.3 %; EOSINOPHILS ABSOLUTE 0.24 10/3/uL (0.0-0.53); IMMATURE GRANULOCYTES 0.8 %; IMMATURE GRANULOCYTES ABSOLUTE 0.08 10/3/uL (0.0-0.11); LYMPHOCYTES 37.2 %; LYMPHOCYTES ABSOLUTE 3.87 10/3/uL (0.67-4.30); MEAN CORPUS HGB CONC 34.9 g/dL (32.0-36.0); MEAN PLATELET VOLUME 11.2 fL (9.2-13.0); MONOCYTES 10.8 %; MONOCYTES ABSOLUTE 1.12 10/3/uL (0.21-1.20); NEUTROPHILS 48.7 %; NEUTROPHILS ABSOLUTE 5.08 10/3/uL (2.02-8.40); PLATELET COUNT 159 10/3/uL (150-400); RBC DISTRIBUTION WIDTH 20.2 % (12.0-16.0); RED CELL COUNT 2.93 10/6/uL (4.0-5.6); WHITE BLOOD CELLS 10.4 10/3/uL (4.5-10.5)
[2016-11-16 07:24] LABS: HEMOGLOBIN 8.8 g/dL (12.0-16.0)
[2016-11-16 07:25] LABS: HEMATOCRIT 25.2 % (36.0-48.0); MANUAL DIFF NO %
[2016-11-17 06:43] LABS: HEMOGLOBIN 9.1 g/dL (12.0-16.0)
[2016-11-18 05:36] LABS: HEMATOCRIT 27.1 % (36.0-48.0); HEMOGLOBIN 9.2 g/dL (12.0-16.0)
[2016-11-18 05:46] LABS: DILANTIN (PHENYTOIN) 10.8 MCG/ML (10.0-20.0)
[2016-11-18 05:48] LABS: DEPAKENE (VALPROIC ACID) 46.6 MCG/ML (50.0-100.0)
[2016-11-19 06:57] LABS: HEMATOCRIT 27.4 % (36.0-48.0); HEMOGLOBIN 9.2 g/dL (12.0-16.0)
== END 2016-11-19 16:40 | DRG 377 ==
LOC: ER 14:15 → 5SO 17:50
PROVIDERS: Emergency Medicine; Hospitalist; Internal Medicine Gastroenterology; Nurse Practitioner Family
PROC: 0DBN8ZZ Excision of Sigmoid Colon, Via Natural or Artificial Opening Endoscopic (ICD-10-PCS; 2016-11-14)
PROC: 0DJ08ZZ Inspection of Upper Intestinal Tract, Via Natural or Artificial Opening Endoscopic (ICD-10-PCS; 2016-11-14)
PROC: 0DBK8ZZ Excision of Ascending Colon, Via Natural or Artificial Opening Endoscopic (ICD-10-PCS; 2016-11-14 07:00)
PROC: 30233N1 Transfusion of Nonautologous Red Blood Cells into Peripheral Vein, Percutaneous Approach (ICD-10-PCS; principal; 2016-11-15)
DX: K92.1 Melena (principal); G93.41 Metabolic encephalopathy; N17.9 Acute kidney failure, unspecified; E44.0 Moderate protein-calorie malnutrition; D62 Acute posthemorrhagic anemia; I69.951 Hemiplegia and hemiparesis following unspecified cerebrovascular disease affecting right dominant side; F03.90 Unspecified dementia, unspecified severity, without behavioral disturbance, psychotic disturbance, mood disturbance, and anxiety; N18.9 Chronic kidney disease, unspecified; D12.5 Benign neoplasm of sigmoid colon; D12.2 Benign neoplasm of ascending colon; G40.909 Epilepsy, unspecified, not intractable, without status epilepticus; E03.9 Hypothyroidism, unspecified; F17.210 Nicotine dependence, cigarettes, uncomplicated; I12.9 Hypertensive chronic kidney disease with stage 1 through stage 4 chronic kidney disease, or unspecified chronic kidney disease; Z82.3 Family history of stroke; Z82.49 Family history of ischemic heart disease and other diseases of the circulatory system; Z79.899 Other long term (current) drug therapy; Z79.82 Long term (current) use of aspirin
CPT/HCPCS: 36415; 70450; 71010; 74230; 80048; 80053; 80164; 80185; 80305; 81001; 82607; 82728; 82746; 82962; 83036; 83540; 83550; 83735; 83880; 84132; 84134; 84443; 84484; 85014; 85018; 85025; 85610; 85730; 86850; 86900; 86901; 86920; 87040; 88305; 92611-GN; 93005; 97116-GP; 97162-GP; 99285; A9270-GY; C9113; G8978-CK-GP; G8979-CJ-GP; J2250; J3010; P9016